=== PATIENT | female | born 1985 | race Caucasian/White ===

== ENCOUNTER → 2017-12-17 13:53 | Outpatient (CLI) | payer OTHER, SELFPAY | PROVIDERS: Family Provider Family Medicine; PCP Family Medicine; Visit Provider Physician Assistant | DX: N39.0 Urinary tract infection, site not specified (principal) | CPT/HCPCS: 87077; 87086; 87147; 87186 ==

== ENCOUNTER → 2018-04-24 16:56 | Outpatient (CLI) | payer OTHER, SELFPAY ==
[2018-04-24 17:22] LABS: Add Manual Diff / Slide Review NO; Basophils Absolute Auto 0 /uL (0-100); Basophils Percent Auto 0.3 % (0-2); Eosinophils Absolute Auto 100 /uL (0-450); Eosinophils Percent Auto 0.5 % (2-4); Hematocrit 39.2 % (36-46); Hemoglobin 12.8 g/dL (12.0-16.0); Lymphocytes Absolute Auto 3300 /uL (1100-4500); Lymphocytes Percent Auto 27.4 % (25-40); Mean Corpuscular HGB Conc 32.6 % (30-36); Mean Corpuscular Hemoglobin 26.7 PG (26-34); Mean Corpuscular Volume 81.9 fL (80-100); Monocytes Absolute Auto 1000 /uL (0-900); Monocytes Percent Auto 8.1 % (3-14); Neutrophils Absolute Auto 7600 /uL (1500-7000); Neutrophils Percent Auto 63.7 % (50-75); Platelet Count 295 X10^3/uL (150-400); Red Blood Cell Count 4.79 X10^6/uL (4.0-5.2); Red Cell Distribution Width 13.8 % (11.6-14.8)
[2018-04-24 18:00] LABS: Appearance Urine UA CLOUDY; Bilirubin Urine UA NEGATIVE (NEGATIVE); Color Urine UA YELLOW; Glucose Urine UA NEGATIVE (Negative); Ketones Urine UA NEGATIVE (NEGATIVE); Leukocyte Esterase Urine UA 3+ (NEGATIVE); Nitrite Urine UA NEGATIVE (Negative); Occult Blood Urine UA TRACE-LYSED (Negative); Protein Urine UA NEGATIVE (Negative); Specific Gravity Urine UA 1.025 (1.000-1.035); Urobilinogen Urine UA 0.2 E.U./dL (0.2)
[2018-04-24 18:36] LABS: RBC Urine None Seen (0-5/HPF)
[2018-04-24 18:37] LABS: Bacteria Urine Many (>30); Squamous Epithelial Cell Urine 10-30 /HPF; WBC Urine 30-100/HPF (0-5/HPF)
[2018-04-24 19:21] LABS: HIV 1 and 2 Antibody NEGATIVE (NEGATIVE); Hep C Virus Ab w/Reflex Quant NEGATIVE s/c (NEGATIVE); Hepatitis B Surface Antigen NEGATIVE s/c (NEGATIVE); Rubella Antibody IgG 7.3 IU/mL (>15)
[2018-04-26 16:33] LABS: RPR Screen Nonreactive (Nonreactive)
== END ==
PROVIDERS: PCP Family Medicine; Visit Provider Obstetrics & Gynecology
DX: Z34.01 Encounter for supervision of normal first pregnancy, first trimester (principal); Z3A.00 Weeks of gestation of pregnancy not specified
CPT/HCPCS: 36415; 80055; 81003; 81015; 86703; 86787; 86803; 86850; 86900; 86901; 87086

== ENCOUNTER 2018-06-09 06:46 | Emergency (ER) | payer OTHER, SELFPAY ==
[2018-06-09 06:57] VITALS: BP 127/76; PULSE 100; RESP 16; TEMP 37; O2SAT 96; BMI 29.2
--- NOTE | 2018-06-09 07:19 | ED.CHESTPAIN ---
HPI - Chest Pain General Chief Complaint: Chest Pain Stated Complaint: chest pain, body aches, about 15 weeks Time Seen by Provider: 06/09/18 07:15 Source: patient and old records reviewed Mode of arrival: ambulatory Limitations: no limitations History of Present Illness HPI narrative: This is a 32-year-old female comes to the emergency department with complaint her chest and shoulder pain, body aches. Patient has not had any fevers. No nasal congestion or cough. She has had a possible flu exposure. She states pain with inspiration. Patient feels like it might be a little harder to breathe. She denies any abdominal pain, no nausea no vomiting no other GI symptoms. Patient has not any other new issues. She did not take anything such as Tylenol for pain because she was unsure what she should take. She is otherwise healthy female. She has a prior D&C that require blood transfusion. She is 15 weeks in her and follows with Dr. Cox. She is taking prenatals but no other medications. She denies any other medical problems. No tobacco, alcohol or illicit. Related Data Home Medications Medication Instructions Recorded Confirmed 1 tab PO DAILY 04/24/18 06/09/18 vitamin,calcium,zfxzfvnf-vzhb-fcbgp acid tablet Allergies Allergy/AdvReac Type Severity Reaction Status Date / Time No Known Drug Allergies Allergy Verified 06/09/18 07:52 Review of Systems Review of Systems ROS Unobtainable: All systems reviewed & are unremarkable except as noted in HPI and below Constitutional Reports body ache(s), Denies chills, Denies fever(s), Denies headache(s), Denies lethargy and Denies weakness ENT Ears, Nose, Mouth, and Throat: Denies headache(s) and Denies nasal congestion Cardiovascular Denies acrocyanosis, Reports chest pain, Denies diaphoresis, Denies syncope, Denies edema, Reports radiating jaw, neck or arm pain (both shoulders), Denies dyspnea and Denies dyspnea on exertion Respiratory Denies change in phlegm color, Denies chest congestion, Denies cough, Denies hemoptysis, Denies excessive phlegm production, Denies pain on inspiration, Denies pain with cough, Denies dyspnea, Denies dyspnea on exertion, Denies stridor, Denies wheezing and Reports other (hard to take deep breath) Gastrointestinal Gastrointestinal: Denies abdominal pain, Denies change in bowel habits, Denies heartburn, Denies diarrhea, Denies nausea and Denies vomiting Genitourinary Denies hematuria, Denies urinary frequency, Denies flank pain, Denies urinary incontinence, Denies urinary hesitancy and Denies urinary urgency Musculoskeletal Reports as per HPI and Denies back pain Integumentary/Breasts Denies erythema and Denies rash Neurologic Denies syncope, Denies headache(s) and Denies weakness Allergic/Immunologic Denies wheezing [facility] Surgical History Status post dilation and curettage Social History Smoking Status: Never smoker Social History Smoking Status: Never smoker alcohol intake: former substance use type: does not use Exam Narrative Exam Narrative: GEN: well nourished, well appearing female, alert and oriented x 3, patient appears to be in no acute distress. Sitting up on edge of bed. HEENT: Atraumatic, pupils are equal round reactive to light, extraocular movements are intact, nares are clear, TMs are clear with no fluid, there is no conjunctival pallor. Throat is clear without any exudates, erythema, tonsillar enlargement or uvular deviation HEART: Regular rate and rhythm without murmur, clicks, rubs. LUNGS:Lungs clear to auscultation, no wheezes, rales, crackles, chest moves symmetrically ABD:bowel sounds normal, soft, non-tender, no guarding, rebound, rigidity, no masses noted, no hepatosplenomegaly :No CVA tenderness MSCL: Non-tender, no muscle atrophy, muscles strength 5/5 upper and lower extremities, full range of motion, normal gait NEURO:CN 2-12 intact, sensation normal, reflexes 2/4 upper and lower extremities. finger nose finger test normal, heel mccoy test normal, romberg normal Initial Vital Signs Initial Vital Signs: Vital Signs Temperature 98.6 F 06/09/18 06:57 Pulse Rate 100 H 06/09/18 06:57 Respiratory Rate 16 06/09/18 06:57 Blood Pressure 127/76 06/09/18 06:57 Pulse Oximetry 96 06/09/18 06:57 Course Orders Ordered: ED Orders 06/09/18 06:53 Influenza A and B by PCR Rapid Stat 06/09/18 07:16 EKG-12 Lead Stat Vital Signs - 8 hr 06/09/18 06:57 06/09/18 07:30 06/09/18 07:56 Temperature 98.6 F 98.6 F Pulse Rate 100 H 91 H 88 Respiratory Rate 16 18 16 Blood Pressure 127/76 Blood Pressure [Left Arm] 115/71 115/71 Pulse Oximetry 96 97 98 06/09/18 08:24 Temperature Pulse Rate 95 H Respiratory Rate 18 Blood Pressure 112/68 Blood Pressure [Left Arm] Pulse Oximetry 97 MDM - Chest Pain Lab Data Attestation: I reviewed the patient's lab results. Lab Results 06/09/18 Range/Units 06:53 Influenza A & B (PCR) Negative (Negative) ECG Data Attestation: I personally reviewed and interpreted this ECG as follows: Interpretation: sinus rhythm with a rate 85 P are interval 121 QRS 80 and QTC of 386. No ST changes. [facility] Narrative Medical decision making narrative: Patient complaining of pain inn her shoulders and chest. Patient EKG is normal. She was concerned about influenza, this is negative. The patient does not have upper respiratory symptoms at this time. She was not sure if she could take medications such as Tylenol and was encouraged that she can take Tylenol. After discussion plan for patient to follow up with primary care, we did discuss differential of cardiac, pulmonary, PE although these are low on my differential today. Patient did have a slightly elevated heart rate on arrival but otherwise vitals are normal. Patient appears fairly asymptomatic. I discussed with patient she is comfortable deferring further workup at this time but we did discuss signs and symptoms to watch for and reasons to return emergently. Discharge Plan Departure Patient Disposition: Home Clinical Impression: Atypical chest pain Discharge Date/Time: 06/09/18 08:27 Interventions: ED Discharge Assessment Last Done: 06/09/18 08:24 Instructions: DI for Atypical Chest Pain Activity Restrictions/Additional Instructions: Follow up with your steel rod buster for recheck in the next 3-5 days. You may take tylenol up to 1000mg every 8 hours, or 3000mg in 24 hours. Make sure you are drinking plenty of fluids. Return to the ER for worsening symptoms, persistent fevers greater than 100.4F, new or worsening chest pain, shortness of breath, persistent vomiting, black or bloody stools, passing out, lightheadedness or other new or concerning symptoms. Prescriptions: No Action prenat.vits,jaclyn,[id number]-bsfut tablet 1 tab PO DAILY RF: 0 Referrals: Filomena Cox MD [Physician] - Ellen Casey DO [Primary Care Provider] - Stand Alone Forms: Work Release Note
[2018-06-09 07:30] VITALS: BP 115/71; PULSE 91; RESP 18; O2SAT 97
--- NOTE | 2018-06-09 07:32 | ED_ITS ---
HPI - Chest Pain General Chief Complaint: Chest Pain Stated Complaint: chest pain, body aches, about 15 weeks Time Seen by Provider: 06/09/18 07:15 Source: patient and old records reviewed Mode of arrival: ambulatory Limitations: no limitations History of Present Illness HPI narrative: This is a 32-year-old female comes to the emergency department with complaint her chest and shoulder pain, body aches. Patient has not had any fevers. No nasal congestion or cough. She has had a possible flu exposure. She states pain with inspiration. Patient feels like it might be a little harder to breathe. She denies any abdominal pain, no nausea no vomiting no other GI symptoms. Patient has not any other new issues. She did not take anything such as Tylenol for pain because she was unsure what she should take. She is otherwise healthy female. She has a prior D&C that require blood transfusion. She is 15 weeks in her and follows with Dr. Cox. She is taking prenatals but no other medications. She denies any other medical problems. No tobacco, alcohol or illicit. Related Data Home Medications Medication Instructions Recorded Confirmed 1 tab PO DAILY 04/24/18 06/09/18 vitamin,calcium,kvnnboiz-zobn-egret acid tablet Allergies Allergy/AdvReac Type Severity Reaction Status Date / Time No Known Drug Allergies Allergy Verified 06/09/18 07:52 Review of Systems Review of Systems ROS Unobtainable: All systems reviewed & are unremarkable except as noted in HPI and below Constitutional Reports body ache(s), Denies chills, Denies fever(s), Denies headache(s), Denies lethargy and Denies weakness ENT Ears, Nose, Mouth, and Throat: Denies headache(s) and Denies nasal congestion Cardiovascular Denies acrocyanosis, Reports chest pain, Denies diaphoresis, Denies syncope, Denies edema, Reports radiating jaw, neck or arm pain (both shoulders), Denies dyspnea and Denies dyspnea on exertion Respiratory Denies change in phlegm color, Denies chest congestion, Denies cough, Denies he moptysis, Denies excessive phlegm production, Denies pain on inspiration, Denies pain with cough, Denies dyspnea, Denies dyspnea on exertion, Denies stridor, Denies wheezing and Reports other (hard to take deep breath) Gastrointestinal Gastrointestinal: Denies abdominal pain, Denies change in bowel habits, Denies heartburn, Denies diarrhea, Denies nausea and Denies vomiting Genitourinary Denies hematuria, Denies urinary frequency, Denies flank pain, Denies urinary incontinence, Denies urinary hesitancy and Denies urinary urgency Musculoskeletal Reports as per HPI and Denies back pain Integumentary/Breasts Denies erythema and Denies rash Neurologic Denies syncope, Denies headache(s) and Denies weakness Allergic/Immunologic Denies wheezing [facility] Surgical History Status post dilation and curettage Social History Smoking Status: Never smoker Social History Smoking Status: Never smoker alcohol intake: former substance use type: does not use Exam Narrative Exam Narrative: GEN: well nourished, well appearing female, alert and oriented x 3, patient appears to be in no acute distress. Sitting up on edge of bed. HEENT: Atraumatic, pupils are equal round reactive to light, extraocular movements are intact, nares are clear, TMs are clear with no fluid, there is no conjunctival pallor. Throat is clear without any exudates, erythema, tonsillar enlargement or uvular deviation HEART: Regular rate and rhythm without murmur, clicks, rubs. LUNGS:Lungs clear to auscultation, no wheezes, rales, crackles, chest moves symmetrically ABD:bowel sounds normal, soft, non-tender, no guarding, rebound, rigidity, no masses noted, no hepatosplenomegaly :No CVA tenderness MSCL: Non-tender, no muscle atrophy, muscles strength 5/5 upper and lower ext remities, full range of motion, normal gait NEURO:CN 2-12 intact, sensation normal, reflexes 2/4 upper and lower extremities. finger nose finger test normal, heel mccoy test normal, romberg normal Initial Vital Signs Initial Vital Signs: Vital Signs Temperature 98.6 F 06/09/18 06:57 Pulse Rate 100 H 06/09/18 06:57 Respiratory Rate 16 06/09/18 06:57 Blood Pressure 127/76 06/09/18 06:57 Pulse Oximetry 96 06/09/18 06:57 Course Orders Ordered: ED Orders 06/09/18 06:53 Influenza A and B by PCR Rapid Stat 06/09/18 07:16 EKG-12 Lead Stat Vital Signs - 8 hr 06/09/18 06:57 06/09/18 07:30 06/09/18 07:56 Temperature 98.6 F 98.6 F Pulse Rate 100 H 91 H 88 Respiratory Rate 16 18 16 Blood Pressure 127/76 Blood Pressure [Left Arm] 115/71 115/71 Pulse Oximetry 96 97 98 06/09/18 08:24 Temperature Pulse Rate 95 H Respiratory Rate 18 Blood Pressure 112/68 Blood Pressure [Left Arm] Pulse Oximetry 97 MDM - Chest Pain Lab Data Attestation: I reviewed the patient's lab results. Lab Results 06/09/18 Range/Units 06:53 Influenza A & B (PCR) Negative (Negative) ECG Data Attestation: I personally reviewed and interpreted this ECG as follows: Interpretation: sinus rhythm with a rate 85 P are interval 121 QRS 80 and QTC of 386. No ST changes. [facility] Narrative Medical decision making narrative: Patient complaining of pain inn her shoulders and chest. Patient EKG is normal. She was concerned about influenza, this is negative. The patient does not have upper respiratory symptoms at this time. She was not sure if she could take medications such as Tylenol and was encouraged that she can take Tylenol. After discussion plan for patient to follow up with primary care, we did discuss differential of cardiac, pulmonary, PE although these are low on my differential today. Patient did have a slightly elevated heart rate on arrival but otherwise vitals are normal. Patient appears fairly asymptomatic. I discussed with patient she is comfortable deferring further workup at this time but we did discuss signs and symptoms to watch for and reasons to return emergently. Discharge Plan Departure Patient Disposition: Home Clinical Impression: Atypical chest pain Discharge Date/Time: 06/09/18 08:27 Interventions: ED Discharge Assessment Last Done: 06/09/18 08:24 Instructions: DI for Atypical Chest Pain Activity Restrictions/Additional Instructions: Follow up with your wool grower for recheck in the next 3-5 days. You may take tylenol up to 1000mg every 8 hours, or 3000mg in 24 hours. Make sure you are drinking plenty of fluids. Return to the ER for worsening symptoms, persistent fevers greater than 100.4F, new or worsening chest pain, shortness of breath, persistent vomiting, black or bloody stools, passing out, lightheadedness or other new or concerning symptoms. Prescriptions: No Action prenat.vits,jaclyn,bpc-hrrx-kzkra tablet 1 tab PO DAILY RF: 0 Referrals: Filomena Cox MD [Physician] - Ellen Casey DO [Primary Care Provider] - Stand Alone Forms: Work Release Note
[2018-06-09 07:41] LABS: Influenza A and B by PCR Rapid Negative (Negative)
--- NOTE | 2018-06-09 07:49 | PC.NURSE ---
pt believes she was exposed to the flu, chest discomfort started yesterday. I explained possible explanations but how we look for cardiac findings and then guess at what it could be. I updated her on how her \eKG looked and also that her flu is negative. Pt understands. She is concerned related to her .
[2018-06-09 07:56] VITALS: BP 115/71; PULSE 88; RESP 16; TEMP 37; O2SAT 98
[2018-06-09 08:24] VITALS: BP 112/68; PULSE 95; RESP 18; O2SAT 97
== END 2018-06-09 08:27 | disposition home or self-care (01) ==
PROVIDERS: Emergency Provider Emergency Medicine; PCP Family Medicine
DX: R07.89 Other chest pain (principal); Z3A.15 15 weeks gestation of pregnancy
CPT/HCPCS: 87400; 93005; 99282; 99283

== ENCOUNTER → 2018-06-20 17:40 | Outpatient (CLI) | payer OTHER, SELFPAY ==
[2018-06-26 09:11] LABS: AFP, Serum 48.1 ng/mL; Calc Gestational Age 16.7; Cigarette Smoker N; Donated Egg NOT GIVEN; Donor Egg Age NOT GIVEN; Estriol, Free 0.87 ng/mL; Inhibin A, Dimeric 120 pg/mL; Maternal Weight 176 lbs; Number of Fetuses NOT GIVEN; Previous Pregnancy Down Syndro NOT GIVEN; hCG, MoM 0.75; hCG, Serum 20.5 IU/mL
== END ==
PROVIDERS: PCP Family Medicine; Visit Provider Obstetrics & Gynecology
DX: Z34.82 Encounter for supervision of other normal pregnancy, second trimester (principal); Z3A.16 16 weeks gestation of pregnancy
CPT/HCPCS: 36415; 82105; 82677; 84702; 86336

== ENCOUNTER → 2018-07-17 14:50 | Outpatient (CLI) | payer OTHER, SELFPAY ==
--- NOTE | 2018-07-17 14:54 | DI.US.S_ITS ---
PROCEDURE: US OB >= 14 WEEKS FETUS INDICATIONS: ANATOMY SCAN OUTSIDE/PRIOR DATING DATA: Last menstrual period (LMP): Not available. LMP-based estimated date of delivery (TERRANCE): Not available. First dating scan (date and location): 04/27/18, by Dr. Cox. Estimated date of delivery (TERRANCE) from first dating scan: 11/29/18, by Dr. Cox. TECHNIQUE: Real-time scanning was performed of the fetus, with image documentation and biometric measurements. Endovaginal scanning: Not needed for the study COMPARISON: [facility], , OB >= 14 WEEKS FETUS, 06/20/2018, 17:38. FINDINGS: General: A single living intrauterine gestation is present. Presentation: Vertex presentation. Placenta: Placental position is posterior, without previa. Amniotic fluid index: 12.0 cm, normal range is 5-24 cm. heart rate: 168 beats per minute. Maternal cervical canal: 5.8 cm long. Normal lower limit is 2.5 cm. biometrics: Biparietal diameter: 4.9 cm, 20 weeks 6 days Head circumference: 18.5 cm, 20 weeks 6 days Abdominal circumference: 17.1 cm, 22 weeks 1 day Femur length: 3.1 cm, 19 weeks 5 days Estimated gestational age from initial scan: 20 weeks 5 days Composite gestational age from present scan: 20 weeks 6 days Estimated weight and percentile: 391 g, 60th percentile. There has been appropriate interval growth. Measurement variability for biometric dating: +/- 7 days from 14 weeks to 15 weeks 6 days gestation, +/- 10 days from 16 weeks to 21 weeks 6 days gestation, +/- 2 weeks from 22 weeks to 27 weeks 6 days gestation, +/- 3 weeks for 28 weeks gestation or later. weight reference: 4500 g or EFW >90/95% is considered macrosomia or large for gestational age. EFW <10% is small for gestational age. EFW 5% or less is considered intra-uterine growth restriction. Anatomic survey: Neuro: Ventricles are non-dilated at less than 10 mm. Cisterna magna is normal at 3-11 mm. Cerebellum is normal in size and morphology. Nuchal skin fold: Normal at less than 6 mm between 14-21 weeks gestational age. Face: Nose and lips, facial profile are poorly seen due to positioning. Spine: No evidence for spina bifida. Heart: 4-chambered heart is present, with poorly seen ventricular outflow tracts due to positioning. Diaphragm: Diaphragm is intact. Stomach: Left-sided stomach is present. Kidneys: No hydronephrosis. Normal is less than 5 mm in 2nd trimester, less than 7 mm in 3rd trimester. Cord: 3-vessel cord has orthotopic insertion. Bladder: Normal in size. Extremities: All 4 extremities identified. IMPRESSION: Appropriate interval growth, no anomaly seen but portions of the anatomy are relatively poorly visualized such as the facial area in the four-chamber view heart with contiguous ventricular outflow tracts due to positioning. Therefore, followup limited OB ultrasound assessment for completion of the anatomic survey is recommended in approximately 10 days. The delivery date is projected to be centered on 11/29/18, plus or -5 days. Dictated by: Abad Blakely M.D. on 07/17/2018 at 17:21 Approved by: Abad Blakely M.D. on 07/17/2018 at 17:25
== END ==
PROVIDERS: PCP Family Medicine; Visit Provider Obstetrics & Gynecology
DX: Z34.02 Encounter for supervision of normal first pregnancy, second trimester (principal); Z3A.20 20 weeks gestation of pregnancy
CPT/HCPCS: 76811

== ENCOUNTER → 2018-08-28 12:27 | Outpatient (CLI) | payer OTHER, SELFPAY ==
[2018-08-28 14:07] LABS: Hematocrit 34.2 % (36-46); Hemoglobin 11.4 g/dL (12.0-16.0)
[2018-08-28 15:03] LABS: GTT (PREG) 1 Hour PP 50gm Dose 136 mg/dL (76-139)
== END ==
PROVIDERS: PCP Family Medicine; Visit Provider Obstetrics & Gynecology
DX: Z34.82 Encounter for supervision of other normal pregnancy, second trimester (principal); Z3A.24 24 weeks gestation of pregnancy
CPT/HCPCS: 36415; 82950; 85014; 85018

== ENCOUNTER 2018-09-24 18:57 | Emergency (ER) | payer OTHER, SELFPAY ==
[2018-09-24 19:01] VITALS: BP 125/78; PULSE 125; RESP 20; TEMP 36.7; O2SAT 99
--- NOTE | 2018-09-24 19:23 | ED_ITS ---
HPI - Skin/Abscess/Foreign Bdy <STACIA Weeks - Last Filed: 09/24/18 21:09> General Chief complaint: Skin/Abscess/Foreign Body Stated complaint: bump on bum x3 days Time Seen by Provider: 09/24/18 19:05 Source: patient Mode of arrival: ambulatory Limitations: no limitations History of Present Illness HPI narrative: 33-year-old female is currently 26 weeks , presents emergency department today complaining of an abscess on her right butt cheek for the past 2 days. States it is slowly gotten bigger and more painful he has been taking Tylenol but this has not helped. Pain is 8/10 aching that is worse with movement and palpation. Denies fevers, chills, nausea, vomiting, chest pain, abdominal cramping, shortness of breath, or syncope. Related Data Home Medications Medication Instructions Recorded Confirmed 1 tab PO DAILY 04/24/18 06/09/18 vitamin,calcium,bcqovmnq-qvdq-thezw acid tablet Allergies Allergy/AdvReac Type Severity Reaction Status Date / Time No Known Drug Allergies Allergy Verified 06/09/18 07:52 Review of Systems <STACIA Weeks - Last Filed: 09/24/18 21:09> Review of Systems REVIEW OF SYSTEMS: GENERAL: Denies fever or chills. HENT: No head trauma, hearing loss or sore throat. EYES: No loss of vision, double vision, eye pain, or irritation. CARDIOVASCULAR: No chest pain or syncope. RESPIRATORY: No shortness of breath or cough. GASTROINTESTINAL: No nausea, vomiting, diarrhea, or constipation. GENITOURINARY: No flank pain or dysuria. MUSCULOSKELETAL: No pain, weakness, or deformities. INTEGUMENTARY: Complains of abscess to gluteal fold. NEURO: No numbness, tingling, memory loss, or confusion. PSYCH: No behavior or mood changes. PFSH <STACIA Weeks - Last Filed: 09/24/18 21:09> Medical History (Acute) Surgical History Status post dilation and curettage Social History (Updated 06/09/18 @ 07:30 by Ximena Washington DO) Smoking Status: Never smoker alcohol intake: former substance use type: does not use Social History Smoking Status: Never smoker alcohol intake: former substance use type: does not use Exam <STACIA Weeks - Last Filed: 09/24/18 21:09> Initial Vital Signs Initial Vital Signs: Vital Signs Temperature 98.0 F 09/24/18 19:01 Pulse Rate 125 H 09/24/18 19:01 Respiratory Rate 20 09/24/18 19:01 Blood Pressure 125/78 09/24/18 19:01 Pulse Oximetry 99 09/24/18 19:01 PHYSICAL EXAMINATION: GENERAL: Well groomed, alert, and cooperative. Answers questions promptly and appropriately. Vital signs noted. HENT: Normocephalic, atraumatic. EYES:,Conjunctiva pink, sclera white, no periorbital swelling. CARDIOVASCULAR: S1 and S2 sounds normal. Regular rate and rhythm, no murmurs, clicks, or bruits. No pedal edema. RESPIRATORY: Normal respiratory rate, trachea midline, airway patent. No stridor, nasal flaring or accessory muscle use. Lungs are clear in all kiran without wheeze, rhonchi, or crackles. MUSCULOSKELETAL: Normal gait and coordination. Equal tone and mass bilaterally. EXTREMITIES: Moves all extremities. SKIN: 4 cm by 2 cm abscess in the right side of gluteal fold, below pilonidal area and above anus. Abscesses indurated and slightly hard with fluctuant middle. No surrounding erythema. The area is very sensitive to touch, no increased warmth. The rest of her skin is Warm, dry, soft, appropriate color for ethnicity. No other lesions, rashes, or wounds. Patient reported significant relief after I&D of abscess. NEURO: Alert and Oriented X 3. Good coordination. No ataxia, or sensory deficits, or cognitive issues. PSYCH: Appropriate affect and mood. <Akbar Manrique DO - Last Filed: 09/24/18 23:33> Initial Vital Signs Initial Vital Signs: Vital Signs Temperature 98.0 F 09/24/18 19:01 Pulse Rate 125 H 09/24/18 19:01 Respiratory Rate 20 09/24/18 19:01 Blood Pressure 125/78 09/24/18 19:01 Pulse Oximetry 99 09/24/18 19:01 Procedures <STACIA Weeks - Last Filed: 09/24/18 21:09> Abscess I/D Site: other (In the gluteal crack on the right side of buttocks, above anus and below pilonidal area. ) Side (if applicable): right Local Anesthetic: lidocaine 1% and with bicarb Amount of anesthesia used (mL): 8 Technique: incised with #11 blade Amount of fluid expressed (mL): 10 Irrigation: Yes Packing used?: plain (About 3 cm of packing was inserted into the wound.) Course <STACIA Weeks - Last Filed: 09/24/18 21:09> Orders Ordered: Discontinued Medications Acetaminophen (Tylenol) 975 mg PO NOW ONE Stop: 09/24/18 19:29 Last Admin: 09/24/18 19:35 Dose: 975 mg Reevaluation(s) Reevaluation #1: Patient reported significant relief after I&D of abscess. Bleeding was easily controlled. Consultations Consultation #1: Patient staffed with Dr. Manrique. Vital Signs - 8 hr 09/24/18 19:01 09/24/18 20:04 Temperature 98.0 F Pulse Rate 125 H 108 H Respiratory Rate 20 16 Blood Pressure 125/78 104/66 Pulse Oximetry 99 95 <Akbar Manrique DO - Last Filed: 09/24/18 23:33> Orders Ordered: Discontinued Medications Acetaminophen (Tylenol) 975 mg PO NOW ONE Stop: 09/24/18 19:29 Last Admin: 09/24/18 19:35 Dose: 975 mg Vital Signs - 8 hr 09/24/18 19:01 09/24/18 20:04 Temperature 98.0 F Pulse Rate 125 H 108 H Respiratory Rate 20 16 Blood Pressure 125/78 104/66 Pulse Oximetry 99 95 MDM - Skin/Abscess/Foreign Bdy <STACIA Weeks - Last Filed: 09/24/18 21:09> Medical Records Attestation: I reviewed the patient's medical records. Lab Data Attestation: I reviewed the patient's lab results. MDM Narrative Medical decision making narrative: Patient symptoms are clearly caused from an abscess due to induration noted on exam and expulsion of significant amount of purulent fluid after incision. Is on likely there is additionally cellulitis surrounding the wound due to lack of erythema, pain in other areas, increased warmth surrounding skin. Because there is no evidence of cellulitis and because she is currently , discussed with patient that it is ideal (inconsistent with current literature) that the I&D is sufficient to treat the infection, however she agreed to closely monitor during this at home and for close follow- up within the week. This avoids administration of systemic antibiotics during . Less likely pilonidal cyst due to location, less likely perirectal cyst or abscess due to location. Discharge Plan Departure Patient Disposition: Home Clinical Impression: Abscess Discharge Date/Time: 09/24/18 20:05 Interventions: ED Discharge Assessment Last Done: 09/24/18 20:04 Instructions: DI for Wound Infection, DI for Skin Abscess Activity Restrictions/Additional Instructions: Thank you for entrusting me with your care today. As discussed, the lump that you felt on your buttocks region was caused by an abscess which is a collection of pus under the skin. A small incision was made to drain the fluid collection, additionally a small amount of sterile gauze was placed in the wound, this may fall out in a day or 2, if it does not you can pull it out. Keep the dressing in place for good 12-24 hours unless it becomes saturated with discharge, then you should change it. The wound may continue to drain for the next 2 days. Follow up with your primary care provider within the week. Monitor the area closely for signs of infection such as increasing redness, increasing pain, fevers, chills, nausea vomiting diarrhea, or chest pain. If any signs of infection occur please return immediately. You may use Tylenol for pain. Prescriptions: No Action prenat.vits,jaclyn,pzo-xwxp-qbxdq tablet 1 tab PO DAILY RF: 0 Referrals: Ellen Casey DO [Primary Care Provider] - <Akbar Manriqeu DO - Last Filed: 09/24/18 23:33> Cosign ED Attending Renae Attestation: I was available for consultation during this patient's emergency department encounter
[2018-09-24] MEDS: ACETAMINOPHEN 325 MG TABLET 975 MG PO (19:35)
--- NOTE | 2018-09-24 19:37 | PC.NURSE ---
STACIA Thompson at bedside for I&D. Pt medicated with Tylenol and given ice water.
[2018-09-24 20:04] VITALS: BP 104/66; PULSE 108; RESP 16; O2SAT 95
== END 2018-09-24 20:05 | disposition home or self-care (01) ==
PROVIDERS: Emergency Provider Nurse Practitioner; PCP Family Medicine
DX: L02.31 Cutaneous abscess of buttock (principal); Z33.1 Pregnant state, incidental
CPT/HCPCS: 10060; 99282

== ENCOUNTER → 2018-11-09 15:41 | Outpatient (CLI) | payer OTHER, SELFPAY ==
[2018-11-10 12:42] LABS: Strep Grp B PCR NEG for Grp B Strep
== END ==
PROVIDERS: PCP Family Medicine; Visit Provider Obstetrics & Gynecology
DX: Z34.03 Encounter for supervision of normal first pregnancy, third trimester (principal)
CPT/HCPCS: 87653

== ENCOUNTER → 2018-11-16 15:21 | Outpatient (CLI) | payer OTHER, SELFPAY ==
[2018-12-08 10:56] LABS: Bile Acids, Total 3
== END ==
PROVIDERS: PCP Family Medicine; Visit Provider Obstetrics & Gynecology
DX: L29.9 Pruritus, unspecified (principal); O99.713 Diseases of the skin and subcutaneous tissue complicating pregnancy, third trimester
CPT/HCPCS: 36415; 82239

== ENCOUNTER 2018-12-04 13:44 | Outpatient (CLI) | payer OTHER, SELFPAY ==
--- NOTE | 2018-12-07 01:34 | P.TNLD_ITS ---
Visit Information Visit Information Date of evaluation: 12/04/18 Primary OB Provider: Filomena Cox Reason for Evaluation: Yes non-stress test non-stress test reason: other (Postdates) [facility] Social History Smoking Status: Never smoker alcohol intake: former substance use type: does not use Evaluation Evaluation Baseline heart rate: 135 Variability: Moderate (11-25) monitor accelerations: Present monitor decelerations: Absent Category of Tracing: I Diagnosis, Plan/Disposition Plan/Disposition Plan: Assessment: Category 1 nonstress test 40-,4/7 weeks gestation Plan: kick counts reviewed Follow-up in 1 day for cervical ripening OB Disposition: home
== END 2018-12-04 14:49 | disposition home or self-care (01) ==
LOC: LABOR 14:23 → OB 12-07 13:31
PROVIDERS: PCP Family Medicine; Visit Provider Obstetrics & Gynecology
DX: O48.0 Post-term pregnancy (principal); Z3A.40 40 weeks gestation of pregnancy
CPT/HCPCS: 59025; G0378; G0379

== ENCOUNTER 2018-12-05 20:58 | Inpatient (IN) | payer OTHER, SELFPAY ==
[2018-12-06 00:19] LABS: Add Manual Diff / Slide Review NO; Basophils Absolute Auto 100 /uL (0-100); Basophils Percent Auto 0.6 % (0-2); Eosinophils Absolute Auto 100 /uL (0-450); Eosinophils Percent Auto 0.4 % (2-4); Hematocrit 35.8 % (36-46); Hemoglobin 11.7 g/dL (12.0-16.0); Lymphocytes Absolute Auto 2200 /uL (1100-4500); Lymphocytes Percent Auto 17.1 % (25-40); Mean Corpuscular HGB Conc 32.8 % (30-36); Mean Corpuscular Volume 82.5 fL (80-100); Monocytes Absolute Auto 800 /uL (0-900); Monocytes Percent Auto 6.6 % (3-14); Neutrophils Absolute Auto 9600 /uL (1500-7000); Neutrophils Percent Auto 75.3 % (50-75); Platelet Count 204 X10^3/uL (150-400); Red Blood Cell Count 4.34 X10^6/uL (4.0-5.2); Red Cell Distribution Width 15.1 % (11.6-14.8); White Blood Cell Count 12.7 X10^3/uL (4.5-11.0)
[2018-12-06 00:40] VITALS: BP 128/71
[2018-12-06] MEDS: OXYTOCIN PREMIX 30 UNIT/500 ML PLAST..BAG IV (09:16)
[2018-12-06] MEDS: LACTATED RINGERS 1,000 ML 125 ML IV ×4 (09:16→17:06)
[2018-12-06] MEDS: ONDANSETRON 4 MG/2 ML INJ IV (15:40)
--- NOTE | 2018-12-06 19:51 | P.HPOB_ITS ---
OB HPI Date/Time Date of admission: 12/05/18 Date Patient Seen: 12/06/18 Time Patient Seen: 07:45 History of Present Condition Chief complaint: maternity : 2 Para: 0 Estimated Date of Delivery: 11/30/18 Estimated Gestational Age (weeks): 40+6 Narrative: Ellie Hale is a 33 year old female 2 para 0 at 40 and 6 7th weeks gestation who presented last evening for Cytotec cervical ripening. She received 1 dose of Cytotec. Her cervix was favorable this morning. She was started on Pitocin augmentation. She had a spontaneous rupture of membranes at 6:30 a.m. with clear amniotic fluid. Indications Indication for induction OB: post dates History of Present care: good care, initiated at week # (8), number of visits (13) and pounds weight gain (48) Dating criteria: LMP confirmed by 1st trimester US Ultrasounds: normal 1st trimester US and normal mid trimester US Obstetrical complications: none Medical complications: none Preadmission Labs Blood type: O (+) positive -: Antibody screen: negative, GBS status: negative, HBsAG: negative, HIV: negative and RPR/VDLR: negative -: Chlamydia screen: not detected and Gonorrhea screen: not detected -: Rubella: not immune and Varicella: immune HCT: 34.2 HCAB: negative PAP: Abnormal (ASC-H, BV) Quad screen: Normal Urine: 30-100K 1 hr GTT: 136 Prior (ies) History: EAB at 8 weeks Evaluation Evaluation Baseline heart rate: 135 Variability: Moderate (11-25) monitor accelerations: Present monitor decelerations: Absent Contraction Frequency (minutes): 5 Uterine Contraction Intensity: Moderate Category of Tracing: I Cervical dilation (cm): 3 Cervical effacement (%): 75 station: -2 Laboratory results: Laboratory Tests 12/05/18 12/05/18 23:45 23:45 WBC 12.7 H RBC 4.34 Hgb 11.7 L Hct 35.8 L MCV 82.5 MCH 27.0 MCHC 32.8 RDW 15.1 H Plt Count 204 Neut % (Auto) 75.3 H Lymph % (Auto) 17.1 L [place] % (Auto) 6.6 Eos % (Auto) 0.4 L Baso % (Auto) 0.6 Neut # (Auto) 9600 H Lymph # (Auto) 2200 [place] # (Auto) 800 Eos # (Auto) 100 Baso # (Auto) 100 Blood Type O Positive Antibody Screen Negative [facility] Social History Smoking Status: Never smoker alcohol intake: former substance use type: does not use Meds Home Medications and Allergies Home Medications Medication Instructions Recorded Confirmed Type prenat.vits,jaclyn,sgh-nian-qxcab 1 tab PO DAILY 04/24/18 12/06/18 History Allergies Allergy/AdvReac Type Severity Reaction Status Date / Time No Known Drug Allergies Allergy Verified 12/06/18 00:43 Exam Vital Signs (past 8 hours): Generally: Patient is sitting up on edge of bed, in moderate distress secondary to contractions Lungs: Clear to auscultation bilaterally Cardiovascular: Regular rate and rhythm Fundal height: 42 cm Estimated weight: 8-1/2 lb Extremities: Negative Homans, 1+ edema Objective Labs Result Diagrams: 12/05/18 23:45 Labs: Laboratory Results - last 24 hr 12/05/18 12/05/18 23:45 23:45 WBC 12.7 H RBC 4.34 Hgb 11.7 L Hct 35.8 L MCV 82.5 MCH 27.0 MCHC 32.8 RDW 15.1 H Plt Count 204 Neut % (Auto) 75.3 H Lymph % (Auto) 17.1 L [place] % (Auto) 6.6 Eos % (Auto) 0.4 L Baso % (Auto) 0.6 Neut # (Auto) 9600 H Lymph # (Auto) 2200 [place] # (Auto) 800 Eos # (Auto) 100 Baso # (Auto) 100 Blood Type O Positive Antibody Screen Negative Assessment and Plan Assessment and Plan Assessment and Plan narrative: Assessment: 33-year-old 2 para 0 at 40 and 6 /7th weeks gestation status post 1 dose of misoprostol for cervical ripening. Spontaneous rupture membranes at 6:30 a.m. with clear amniotic fluid Irregular contractions Plan: Pitocin augmentation Epidural as necessary Expected management to spontaneous vaginal delivery Time Spent with Patient Total time spent with greater than 50% in coordination of care (as documented) at patient's floor/unit and/or counseling patient:: 15-24 minutes
--- NOTE | 2018-12-06 19:57 | PM.OBPNLAB ---
Date/Time Date Patient Seen: 12/06/18 Time Patient Seen: 19:57 Pain Control Pain control: epidural Pelvic Exam Dilation (cm): 5 Effacement (%): 90 station: 0 Amniotic membrane status: Ruptured Contractions Contractions on admission: none Monitor mode: External Pitocin rate (mU/min): 9 Contraction frequency (min): 3 Contraction duration (min): 1 Contraction pattern: Regular Contraction intensity: Moderate Status status: Category l Heart Rate Baseline: 135 Monitor Accelerations: Present Monitor Decelerations: Early Monitor Variability: Moderate Assessment and Plan Assessment: induction ongoing Plan: continuous present management
--- NOTE | 2018-12-06 22:12 | PM.OBPNLAB ---
Date/Time Date Patient Seen: 12/06/18 Time Patient Seen: 22:12 Pain Control Pain control: epidural Pelvic Exam Dilation (cm): 7 Effacement (%): 90 station: 0 Amniotic membrane status: Ruptured Contractions Monitor mode: External Pitocin rate (mU/min): 7 Contraction frequency (min): 3 Contraction pattern: Regular Contraction intensity: Moderate Status status: Category l Heart Rate Baseline: 135 Monitor Accelerations: Present Monitor Decelerations: Early Monitor Variability: Moderate Assessment and Plan Assessment: induction ongoing Plan: other ( scalp electrode placed, intrauterine pressure catheter placed to assess adequacy of contractions)
[2018-12-07] MEDS: LACTATED RINGERS 1,000 ML 100 ML IV ×3 (01:13→04:31)
--- NOTE | 2018-12-07 01:56 | PM.OBPNLAB ---
Date/Time Date Patient Seen: 12/07/18 Time Patient Seen: 01:56 Pain Control Pain control: epidural (Not getting good pain relief) Pelvic Exam Dilation (cm): 7 Effacement (%): 90 station: 0 Amniotic membrane status: Ruptured Contractions Monitor mode: Internal Pitocin rate (mU/min): 12 Contraction frequency (min): 3 Contraction pattern: Regular Contraction intensity: Moderate Intrauterine tone measurement: 180 Status status: Category l Monitor Accelerations: Present Monitor Decelerations: Early Monitor Variability: Moderate Assessment and Plan Assessment: other (Stage I arrest of labor) Plan: Comments: The risks, benefits, and alternatives to the procedure were explained to the patient. The risks including bleeding, infection, injury to the bowel, bladder, or ureters. She understands these risks and agrees to proceed. A full par Q was held and consent form was signed.
--- NOTE | 2018-12-07 01:58 | PM.PREOP ---
Pre-operative Note Interval Note History & Physical reviewed/Exam performed by Physician: Yes Changes to H&P: No
[2018-12-07] MEDS: CEFAZOLIN 2 GM/100 ML FROZ.PIGGY IV (02:35)
--- NOTE | 2018-12-07 03:03 | SUR.OPER ---
Supine on Padded OR bed, head on pillow, safety belt at thigh, arms secured on padded arm boards at <90 degrees abduction. Bump under right buttock. Legs uncrossed with pillow under knees, gel pad to heels, tape over blanket to lower legs.
--- NOTE | 2018-12-07 03:08 | SUR.OPER ---
Viable male born at 0307. Cord blood x2 and placenta sent with L&D RN.
--- NOTE | 2018-12-07 03:50 | P.OP_ITS ---
Operative Date/Time/Diagnoses Date of procedure: 12/07/18 Time of procedure: 03:50 Pre-op diagnosis: Stage I arrest of labor Suspected occiput posterior presentation Post-op diagnosis: same Procedure & Clinicians Procedure: Procedures Operation Date: 12/07/18 02:20 Actual Procedures Side Surgeon p Section Filomena Cox MD Indications: Stage I arrest of labor Suspected occiput posterior presentation Surgeon: Filomena Cox Anesthesia Type: Spinal Operative Notes Findings: Live male in the direct occiput posterior presentation Edematous bladder Normal tubes and ovaries Closure Type: primary Specimen(s): other (Cord bloods, placenta) Applied: catheter Estimated blood loss (mL): 500 Blood products transfused: none Procedure in detail: The patient was taken to the operating room where she was placed in the seated position. Spinal anesthesia was administered. She was then placed in the dorsal supine position with a leftward tilt. The infant's head was elevated from below with a sterile gloved hand. She was prepped and draped in the usual sterile fashion. A timeout was performed. After spinal analgesia was found to be adequate, a Pfannenstiel skin incision was made 2 fingerbreadths above the pubic symphysis and carried through to the underlying layer fascia. The fascia was nicked in the midline, and the incision extended bilaterally with the Myers scissors. The superior aspect of the fascial incision was grasped with a [place] clamps, elevated, and the underlying rectus muscles dissected off sharply and bluntly. Attention was then turned to the inferior aspect of this incision which in a similar fashion was grasped with a [place] clamps, elevated, and the underlying rectus muscles dissected off sharply and bluntly. The rectus muscles were in the midline. The bladder was found to be edematous. The peritoneum was identified, grasped between 2 hemostats, and entered sharply with the Metzenbaum scissors. This incision was extended superiorly and inferiorly with good visualization of the bladder. The bladder blade was inserted. The vesicouterine peritoneum was identified, grasped with the pickup, and entered sharply with the Metzenbaum scissors. This incision was extended bilaterally, and the bladder flap was created digitally. The bladder blade was reinserted. The lower uterine segment was incised in a transverse fashion with the scalpel. Upon entering the amniotic sac there was a small amount of clear amniotic fluid. The vertex was found to be in the direct occiput posterior presentation. The infant's head was delivered without d ifficulty. The nose and mouth were suctioned with bulb suction. The remainder of the body delivered without difficulty. The cord was double clamped and cut. The infant was handed off to waiting RN and RT. The placenta was delivered manually. The uterus was cleared of all clots and debris. The uterine incision was repaired with #1 chromic in a running interlocking fashion, and a second layer the same suture was used for an imbricating layer. Hemostasis was achieved. The tubes and ovaries were examined and were found to be normal. The gutters were cleared of all clots and debris. The bladder flap was reapproximated using 2-0 Vicryl in a running fashion. The parietal peritoneum was closed using 2-0 Vicryl in a running fashion. The fascia was reapproximated using 0 Vicryl in a running fashion. Subcutaneous layer was copiously irrigated with warm normal saline. 4 simple interrupted sutures of 3-0 Vicryl were placed to reapproximate the subcutaneous layer. The skin was closed with 4-0 Biosynl in a subcuticular fashion. Steri-Strips were placed. An Aquacel dressing was placed. The uterus was expressed of a small amount of old blood. Sponge, lap, and instrument counts were correct x 2. The patient tolerated the procedure well, and was taken to PACU in stable condition. Complications: none Post-operative Condition: stable Disposition: PACU Plan for aftercare: To the center after recovery
[2018-12-07] MEDS: KETOROLAC 30 MG/ML VIAL IV ×3 (10:30→22:37)
[2018-12-08] MEDS: IBUPROFEN 600 MG TABLET PO ×2 (05:06→13:00)
[2018-12-08 06:47] LABS: Hematocrit 27.5 % (36-46); Hemoglobin 9.1 g/dL (12.0-16.0)
[2018-12-08] MEDS: DOCUSATE 250 MG CAPSULE PO (09:42)
--- NOTE | 2018-12-08 10:19 | PM.OBDS.1 ---
Discharge Providers Provider Date of admission: 12/05/18 20:58 Discharge Date: 12/08/18 Primary care physician: Ellen Casey DO Consults: 12/07/18 04:03 Consult to Sonography Technologist Routine Comment: Discharge provider: Patricia Harrison MD Summary Hospital Course Date Patient Seen: 12/08/18 Time Patient Seen: 08:00 Procedures: section Peripartum Data Infant Delivery Method: Section (1st stage arrest) Procedures: Epidural catheter, primary low-transverse section complications: none 1: Gender: Male Disposition of : home Discharge Diagnosis (1) Delivery by section: Status: Acute (2) Acute blood loss anemia: Status: Acute Status at Discharge Cognitive/behavioral status at discharge: oriented Functional status at discharge: independent ambulation Overall status at discharge: patient is progressing back to baseline Time Spent with Patient Time attestation: Total time spent providing and/or coordinating discharge services: Time spent: Less than 30 minutes Objective Labs Result Diagrams: 12/08/18 06:28 Labs: Laboratory Results - last 24 hr 12/08/18 06:28 Hgb 9.1 L Hct 27.5 L Exam Vital Signs (past 8 hours): Blood pressure 109/69, pulse of 94, temperature 98.2? Narrative Exam Narrative: Patient's abdomen is soft, nontender. Uterus is firm, U -1, nontender. Dressing is dry. Mild lochia. Extremities with trace edema and nontender. Patient is blood type O positive and rubella nonimmune so will receive rubella vaccine prior to discharge. Discharge Plan Discharge Plan Patient Disposition: Home Discharge Med Rec/Prescriptions Prescriptions: New oxycodone-acetaminophen 5-325 mg Tablet 2 tab PO Q4HR PRN (Reason: Pain, Severe (7-10)) Qty: 30 RF: 0 ibuprofen 600 mg Tablet 600 mg PO Q6HR PRN (Reason: As Needed For Fever/Mild Pain) Qty: 30 RF: 0 docusate sodium 250 mg Capsule 250 mg PO DAILY Qty: 14 RF: 0 Auryxia 210 mg iron tablet 210 mg PO TID Qty: 90 RF: 0 Continued prenat.vits,jaclyn,ebc-ecmv-fxrzg tablet 1 tab PO DAILY RF: 0 Follow up/Referrals: Filomena Cox MD [Physician] - 1 Week (Remove Aquacel) Ellen Casey DO [Primary Care Provider] - Provider Discharge Instructions Diet: Regular Activity: Nothing in vagina and do not lift over 20 lb for 6 weeks Skin/Wound/Dressing Care Report to your healthcare provider any signs of infection, such as:: chills, fever, increased pain and unusual redness Dressing: Leave dressing on until follow-up appointment in 1 week Discharge Data Primary Care Provider: Ellen Casey
[2018-12-08 10:34] VITALS: BP 128/71; PULSE 94; RESP 18; TEMP 36.8
[2018-12-08] MEDS: MEASLES,MUMPS,RUBELLA VACC/PF 0.5 ML VIAL SUBCUT (13:13)
== END 2018-12-08 13:30 | disposition home or self-care (01) | DRG 787 ==
PROVIDERS: Admitting Provider Obstetrics & Gynecology; PCP Family Medicine; Visit Provider Obstetrics & Gynecology
PROC: 10D00Z1 Extraction of Products of Conception, Low, Open Approach (ICD-10-PCS; CPT 59514; principal; 2018-12-07 02:20)
DX: O62.0 Primary inadequate contractions (principal); D62 Acute posthemorrhagic anemia; O48.0 Post-term pregnancy; Z3A.40 40 weeks gestation of pregnancy; Z37.0 Single live birth; O61.0 Failed medical induction of labor
CPT/HCPCS: 01967; 01968; 36415; 59050; 59510; 85014; 85018; 85025; 86850; 86900; 86901; G0379; J0690; J1885; J2274; J2405; J2590; J3010

== ENCOUNTER 2025-03-03 17:48 | Emergency (ER) | payer OTHER, SELFPAY ==
[2025-03-03 18:02] VITALS: BP 127/67; PULSE 89; RESP 16; TEMP 37; O2SAT 98; BMI 32.8
[2025-03-03 18:19] LABS: Culture Indicated Urine Specimen Cultured
--- NOTE | 2025-03-03 18:21 | ED_ITS ---
HPI - Female Genitourinary General Chief complaint: Urogenital-Female Stated complaint: possible uti Time Seen by Provider: 03/03/25 18:09 Source: patient Mode of arrival: Ambulatory History of Present Illness HPI Narrative: 39-year-old female presenting with some dysuria, urinary frequency for the past couple of days. She denies any suprapubic pain CVA tenderness or other symptoms. Related Data Previous Rx's ?Medication ?Instructions ?Recorded norgestimate-ethinyl estradiol 1 tab PO DAILY #84 tabs 06/03/23 0.18mg/0.215mg/0.25mg-0.035mg(28)tablet (Ortho Tri-Cyclen (28)) cephalexin 500 mg capsule 500 mg PO BID #14 caps 03/03 Allergies Allergy/AdvReac Type Severity Reaction Status Date / Time No Known Drug Allergies Allergy Verified 03/03/25 18:02 Review of Systems Review of Systems ROS Unobtainable: All systems reviewed & are unremarkable except as noted in HPI and below Patient History Medical History (Updated 03/03/25 @ 18:23 by Zackary Hernandez MD) Surgical History (Updated 01/25/19 @ 03:04 by Filomena Cox MD) History of section Status post dilation and curettage Exam Narrative Exam Narrative: General: Patient appears to be in no acute distress, acting appropriately Head: normocephalic, atraumatic, HEENT: Pupils equal round reactive, eyes tracking well, neck supple, no JVD Heart: regular rate and rhythm, no murmurs, rubs, or gallops heard Lungs: clear to auscultation, no adventitious sounds Abdomen: soft , nontender, nondistended, positive bowel sounds Neurological: no focal neurological signs, moving all extremities well, alert and oriented x3, Psych: good judgment ,good insight, mood is normal. Initial Vital Signs Initial Vital Signs: Vital Signs Temperature 98.6 F 03/03/25 18:02 Pulse Rate 89 03/03/25 18:02 Respiratory Rate 16 03/03/25 18:02 Blood Pressure 127/67 03/03/25 18:02 Pulse Oximetry 98 03/03/25 18:02 Oxygen Delivery Method Room Air 03/03/25 18:02 Course Orders Ordered: ED Orders 03/03/25 18:00 Urine Culture Stat Urine Microscopic Stat Ondansetron HCl (Ondansetron 4 Mg/2 Ml Inj) 4 mg IV NOW PRN PRN Reason: Nausea And Vomiting Ondansetron HCl (Ondansetron 4 Mg Odt) 4 mg PO NOW PRN PRN Reason: Nausea And Vomiting Discontinued Medications Cefazolin Sodium (Cephalexin 250 Mg Cap Prepack) 1 bottle MISC DIRECTED ONE Stop: 03/03/25 18:22 Vital Signs Vital signs: Vital Signs - 8 hr 03/03/25 18:02 Temperature 98.6 F Pulse Rate 89 Respiratory Rate 16 Blood Pressure 127/67 Pulse Oximetry 98 Oxygen Delivery Method Room Air MDM - Female Genitourinary Lab Data Labs: Lab Results 03/03/25 Range/Units 18:00 Urine RBC >100/hpf H (0-5/HPF) Urine WBC >100/hpf H (0-5/HPF) Ur Squamous Epith Cells 0-1 /hpf D (0-5/HPF) Urine Bacteria Many (>30) H (None) Ur Culture Indicated? Specimen cultured Vol Urine Centrifuged 10ml (spun) Point of Care Testing Test Results Negative Urine Dip Bedside Urine Glucose Negative Bedside Urine Bilirubin - Negative Bedside Urine Ketone - Negative Urine Specific [place] 1.020 Bedside Urine Occult Blood +++ Bedside Urine pH 6.0 Bedside Urine Protein ++ 100 Bedside Urine Urobilinogen - Negative Bedside Urine Nitrite - Negative Bedside Urine Leukocytes +++ 500 Esterase [facility] Narrative Medical decision making narrative: 39-year-old female who presents with UTI symptoms of dysuria and urinary frequency. Patient advised to start the antibiotics and will follow up in a couple of days if symptoms are not improved. Discharge Plan Departure Patient Disposition: Home Clinical Impression: Urinary tract infection Qualifiers: Urinary tract infection type: acute cystitis Hematuria presence: without hematuria Qualified Code(s): N30.00 - Acute cystitis without hematuria Instructions: DI for Urinary Tract Infection (UTI) Activity Restrictions/Additional Instructions: take at least 1 week worth of antibiotics twice a day. Follow up if symptoms are not improved in next couple of days. Prescriptions: New cephalexin 500 mg capsule 500 mg PO BID Qty: 14 0RF No Action norgestimate-ethinyl estradiol [Ortho Tri-Cyclen (28)] 0.18/0.215/0.25 mg-35 mcg (28) tablet 1 tab PO DAILY Qty: 84 3RF Referrals: Janessa Mcnamara DO [Primary Care Provider, Family Practice] Stand Alone Forms: Patient Portal/API
== END 2025-03-03 18:31 | disposition home or self-care (01) ==
PROVIDERS: Emergency Provider Family Medicine; PCP Family Medicine
DX: N30.00 Acute cystitis without hematuria (principal); B96.89 Other specified bacterial agents as the cause of diseases classified elsewhere
CPT/HCPCS: 81003; 81015; 81025; 87077; 87086; 99282

== ENCOUNTER 2025-03-04 03:14 | Emergency (ER) | payer OTHER, SELFPAY ==
[2025-03-04 03:30] VITALS: BP 132/84; PULSE 115; RESP 20; TEMP 37.1; O2SAT 100; BMI 31.7
[2025-03-04 03:33] LABS: Appearance Urine UA CLOUDY; Bilirubin Urine UA 2+ (NEGATIVE); Color Urine UA BROWN; Glucose Urine UA NEGATIVE (Negative); Ketones Urine UA TRACE (NEGATIVE); Leukocyte Esterase Urine UA 2+ (NEGATIVE); Nitrite Urine UA POSITIVE (Negative); Occult Blood Urine UA 3+ (Negative); Protein Urine UA 3+ (Negative); Specific Gravity Urine UA >=1.030 (1.000-1.035); Urobilinogen Urine UA 1.0 E.U./dL (0.2)
[2025-03-04 03:34] LABS: pH Urine UA 6.5 (4.5-8.0)
[2025-03-04 03:38] LABS: Ictotest Urine Negative (Negative)
[2025-03-04 03:40] LABS: Culture Indicated Urine Specimen Cultured
[2025-03-04 03:47] LABS: Add Manual Diff / Slide Review NO; Hematocrit 37.5 % (36-46); Hemoglobin 12.5 g/dL (12.0-16.0); Lymphocytes Absolute Auto 2800 /uL (1100-4500); Mean Corpuscular HGB Conc 33.3 % (30-36); Mean Corpuscular Hemoglobin 26.7 PG (26-34); Mean Corpuscular Volume 80.2 fL (80-100); Platelet Count 254 X10^3/uL (150-400)
[2025-03-04 03:55] LABS: Alanine Aminotransferase 25 IU/L (<35); Albumin 4.3 g/dL (3.5-5.0); Albumin Globulin Ratio 1.7 (1.0-2.8); Alkaline Phosphatase 78 U/L (38-126); Blood Urea Nitrogen 15 mg/dL (7-17); Calcium 10.1 mg/dL (8.4-10.2); Carbon Dioxide 21 mmol/L (22-32); Chloride 110 mmol/L (98-107); Estimated Glomerular Filt Rate > 60 mL/min (>60); Globulin 2.6 g/dL (1.7-4.1); Glucose 106 mg/dL (70-99); HEMOLYSIS < 15 (0-50); Lipase 66 U/L (23-300); Potassium 3.7 mmol/L (3.4-5.1); Sodium 140 mmol/L (137-145); Total Protein 6.9 g/dL (6.3-8.2)
--- NOTE | 2025-03-04 04:03 | EKG_ITS ---
[address] [address] Test Date: 2025-03-04 Pat Name: Ellie Hale Department: [facility] Room: Gender: Female Digital Account Supervisor: ANI : 1985 Requested By: Order Number: [id number] Reading MD: Toby Gray MD Measurements Intervals [place] Rate: 84 P: 45 TN: 136 QRS: 50 QRSD: 72 T: 12 QT: 344 QTc: 406 Interpretive Statements Normal sinus rhythm Low voltage QRS Electronically Signed On 03-04-2025 11:24:21 PST by Toby Gray MD
[2025-03-04 04:05] LABS: Lactate (Lactic Acid) 1.1 mmol/L (0.7-2.1)
[2025-03-04 04:07] VITALS: PULSE 87; RESP 17; O2SAT 97
--- NOTE | 2025-03-04 04:18 | ED.FEMALEGU ---
HPI - Female Genitourinary General Chief complaint: Urogenital-Female Stated complaint: Urinary Symptoms, Blood in Urine Time Seen by Provider: 03/04/25 03:35 Source: patient Mode of arrival: Ambulatory History of Present Illness HPI Narrative: 39-year-old female who was just seen a few hours ago here in the ER for some dysuria, urinary frequency that initiate an a couple of days ago. She presents back to the ER due to more hematuria that concerned her. She continues to deny any suprapubic pain or CVA tenderness or other symptoms. Related Data Previous Rx's ?Medication ?Instructions ?Recorded norgestimate-ethinyl estradiol 1 tab PO DAILY #84 tabs 06/03/23 0.18mg/0.215mg/0.25mg-0.035mg(28)tablet (Ortho Tri-Cyclen (28)) cephalexin 500 mg capsule 500 mg PO BID #14 caps 03/03/25 phenazopyridine 100 mg tablet 100 mg PO TID PRN pain 6 doses #6 03/04/25 (Pyridium) tabs Allergies Allergy/AdvReac Type Severity Reaction Status Date / Time No Known Drug Allergies Allergy Verified 03/04/25 03:30 Review of Systems Review of Systems ROS Unobtainable: All systems reviewed & are unremarkable except as noted in HPI and below Patient History Medical History (Updated 03/04/25 @ 04:24 by Zackary Hernandez MD) Surgical History (Updated 01/25/19 @ 03:04 by Filomena Cox MD) History of section Status post dilation and curettage Exam Narrative Exam Narrative: General: Patient appears to be in no acute distress, acting appropriately Head: normocephalic, atraumatic, HEENT: Pupils equal round reactive, eyes tracking well, neck supple, no JVD Heart: regular rate and rhythm, no murmurs, rubs, or gallops heard Lungs: clear to auscultation, no adventitious sounds Abdomen: soft , nontender, nondistended, positive bowel sounds Neurological: no focal neurological signs, moving all extremities well, alert and oriented x3, Psych: good judgment ,good insight, mood is normal. Initial Vital Signs Initial Vital Signs: Vital Signs Temperature 98.7 F 03/04/25 03:30 Pulse Rate 115 H 03/04/25 03:30 Respiratory Rate 20 03/04/25 03:30 Blood Pressure 132/84 03/04/25 03:30 Pulse Oximetry 100 03/04/25 03:30 Oxygen Delivery Method Room Air 03/04/25 03:30 Course Orders Ordered: ED Orders 03/04/25 03:20 Ictotest Urine Stat Urinalysis and Microscopic Stat 03/04/25 03:28 Complete Blood Count AUTO DIFF Stat Comprehensive Metabolic Panel Stat Lactate (Lactic Acid) Stat Lipase Stat Test Urine Stat 03/04/25 03:35 EKG-12 Lead Stat Discontinued Medications Ceftriaxone Sodium 1,000 mg/ (Sodium Chloride) 100 mls @ 200 mls/hr IV NOW ONE Stop: 03/04/25 04:16 Last Infusion: 03/04/25 05:26 Dose: Infused Documented By: Admin: 03/04/25 04:28 Dose: 200 mls/hr Documented By: DEEPIKA Sodium Chloride (Normal Saline 0.9%) 1,000 mls @ 1,000 mls/hr IV BOLUS ONE Stop: 03/04/25 05:21 Last Infusion: 03/04/25 05:26 Dose: Infused Documented By: Admin: 03/04/25 04:28 Dose: 1,000 mls/hr Documented By: DEEPIKA Ondansetron HCl (Ondansetron 4 Mg/2 Ml Inj) 4 mg IV NOW PRN PRN Reason: Nausea And Vomiting Ondansetron HCl (Ondansetron 4 Mg Odt) 4 mg PO NOW PRN PRN Reason: Nausea And Vomiting Phenazopyridine HCl (Phenazopyridine 100 Mg Tablet) 200 mg PO NOW ONE Stop: 03/04/25 05:28 Last Admin: 03/04/25 05:30 Dose: 200 mg Documented By: DEEPIKA Vital Signs Vital signs: Vital Signs - 8 hr 03/04/25 03:30 03/04/25 04:07 03/04/25 04:30 Temperature 98.7 F Pulse Rate 115 H 87 Respiratory Rate 20 17 Blood Pressure 132/84 118/77 Pulse Oximetry 100 97 Oxygen Delivery Method Room Air Room Air 03/04/25 04:30 Temperature Pulse Rate 78 Respiratory Rate 20 Blood Pressure Pulse Oximetry 100 Oxygen Delivery Method Room Air MDM - Female Genitourinary Lab Data 03/04/25 03:28 03/04/25 03:28 Labs: Lab Results 03/04/25 03/04/25 Range/Units 03:20 03:28 WBC 15.4 H (4.5-11.0) X10^3/uL RBC 4.67 (4.0-5.2) X10^6/uL Hgb 12.5 (12.0-16.0) g/dL Hct 37.5 (36-46) % MCV 80.2 (80-100) fL MCH 26.7 (26-34) PG MCHC 33.3 (30-36) % RDW 14.3 (11.6-14.8) % Plt Count 254 (150-400) X10^3/uL Neut % (Auto) 74.6 (50-75) % Lymph % (Auto) 18.1 L (25-40) % [place] % (Auto) 6.3 (3-14) % Eos % (Auto) 0.8 L (2-4) % Baso % (Auto) 0.2 (0-2) % Neut # (Auto) 43157 H (0938-2877) /uL Lymph # (Auto) 2800 (4415-6936) /uL [place] # (Auto) 1000 H (0-900) /uL Eos # (Auto) 100 (0-450) /uL Baso # (Auto) 0 (0-100) /uL Sodium 140 (137-145) mmol/L Potassium 3.7 (3.4-5.1) mmol/L Chloride 110 H (98-107) mmol/L Carbon Dioxide 21 L (22-32) mmol/L BUN 15 (7-17) mg/dL Creatinine 0.70 (0.52-1.04) mg/dL Estimated GFR > 60 (>60) mL/min BUN/Creatinine Ratio 21.4 (6-22) Glucose 106 H (70-99) mg/dL Lactate 1.1 (0.7-2.1) mmol/L Calcium 10.1 (8.4-10.2) mg/dL Total Bilirubin 0.4 (0.2-1.3) mg/dL AST 21 (14-36) IU/L ALT 25 (<35) IU/L Alkaline Phosphatase 78 (38-126) U/L Total Protein 6.9 (6.3-8.2) g/dL Albumin 4.3 (3.5-5.0) g/dL Globulin 2.6 (1.7-4.1) g/dL Albumin/Globulin Ratio 1.7 (1.0-2.8) Lipase 66 (23-300) U/L Urine Color Brown Urine Appearance Cloudy Urine pH 6.5 (4.5-8.0) Ur Specific [place] >=1.030 H (1.000-1.035) Urine Protein 3+ H (Negative) Urine Glucose (UA) Negative (Negative) g/dL Urine Ketones Trace H (NEGATIVE) Urine Occult Blood 3+ H (Negative) Urine Nitrate Positive H (Negative) Urine Bilirubin 2+ H (NEGATIVE) Ur Bilirubin Confirm Negative (Negative) Urine Urobilinogen 1.0 (0.2) E.U./dL Ur Leukocyte Esterase 2+ H (NEGATIVE) Urine RBC >100/hpf H (0-5/HPF) Urine WBC >100/hpf H (0-5/HPF) Ur Squamous Epith Cells None seen (0-5/HPF) Urine Bacteria Many (>30) H (None) Ur Culture Indicated? Specimen cultured Vol Urine Centrifuged Low vol <10ml (spun) A Urine Test Negative (Negative) MDM Narrative Medical decision making narrative: 39-year-old female who was seen earlier in the ER here for UTI and given Keflex 500 mg p.o.. She came in again due to having more hematuria. She still continues to diet any suprapubic pain or CVA tenderness. She was given Rocephin 1 g and some fluids. Advised to continue with p.o. Keflex and come back sooner if symptoms do not improve. Discharge Plan Departure Patient Disposition: Home Clinical Impression: Urinary tract infection Qualifiers: Urinary tract infection type: acute cystitis Hematuria presence: without hematuria Qualified Code(s): N30.00 - Acute cystitis without hematuria Instructions: DI for Urinary Tract Infection (UTI) Activity Restrictions/Additional Instructions: Continue to hydrate well and still complete the oral antibiotics. Come back again sooner if symptoms worsen. Prescriptions: New phenazopyridine [Pyridium] 100 mg tablet 100 mg PO TID PRN (Reason: pain) Qty: 6 0RF No Action norgestimate-ethinyl estradiol [Ortho Tri-Cyclen (28)] 0.18/0.215/0.25 mg-35 mcg (28) tablet 1 tab PO DAILY Qty: 84 3RF cephalexin 500 mg capsule 500 mg PO BID Qty: 14 0RF Referrals: Janessa Mcnamara DO [Primary Care Provider, Family Practice] Stand Alone Forms: Patient Portal/API
[2025-03-04] MEDS: SODIUM CHLORIDE 0.9% 1,000 ML 1000 ML IV (04:28)
[2025-03-04 04:30] VITALS: BP 118/77; PULSE 78; RESP 20; O2SAT 100
[2025-03-04] MEDS: PHENAZOPYRIDINE 100 MG TABLET 200 MG PO (05:30)
== END 2025-03-04 05:34 | disposition home or self-care (01) ==
PROVIDERS: Emergency Provider Family Medicine; PCP Family Medicine
DX: N39.0 Urinary tract infection, site not specified (principal); R35.0 Frequency of micturition; R31.9 Hematuria, unspecified
CPT/HCPCS: 36415; 80053; 81001; 81025; 83605; 83690; 85025; 93005; 93010; 96365; 99284; J0696; J7030; J7050